=== PATIENT | male | born 1990 | race Caucasian/White ===

== ENCOUNTER 2016-11-27 23:36 | Emergency (ER) | payer SELFPAY ==
[2016-11-28 01:36] LABS: ABSOLUTE BASOPHILS # (AUTO) 0.1 10^3/uL (0.0-0.2); ABSOLUTE EOSINOPHILS # (AUTO) 0.1 10^3/uL (0.0-0.6); ABSOLUTE LYMPHOCYTES (AUTO) 2.8 10^3/uL (0.5-4.7); ABSOLUTE MONOCYTES (AUTO) 0.5 10^3/uL (0.1-1.4); ABSOLUTE NEUT (AUTO) 6.8 10^3/uL (1.7-8.2); BASOPHILS % (AUTO) 1.1 % (0-2); EOSINOPHILS % (AUTO) 1.3 % (0-6); LYMPHOCYTES % (AUTO) 26.8 % (13-45); MEAN CORPUSCULAR HEMOGLOBIN 29.3 pg (27.0-33.4); MEAN CORPUSCULAR HGB CONC 34.2 g/dL (32.0-36.0); MEAN CORPUSCULAR VOLUME 86 fl (80-97); MONOCYTES % (AUTO) 5.2 % (3-13); RED BLOOD COUNT 4.79 10^6/uL (4.35-5.55); RED CELL DISTRIBUTION WIDTH 14.2 % (11.5-14.0); SEGMENTED NEUTROPHILS % (AUTO) 65.6 % (42-78); WHITE BLOOD COUNT 10.3 10^3/uL (4.0-10.5)
--- NOTE | 2016-11-28 01:53 | ER Document Report ---
ED Cardiac - General Time seen by provider: 01:40 Mode of Arrival: Ambulatory Information source: Patient - HPI Patient complains to provider of: Chest pain Was the onset of pain: Sudden Chest pain location: Substernal Quality of pain: Pressure, Throbbing Chest pain radiation location: Left arm, Right arm Severity now: Mild Cardiac risk factors: + Family history Associated symptoms: Diaphoresis, Nausea/vomiting <QI THAYER - Last Filed: 11/28/16 03:00> <MERVIN GONZALEZ - Last Filed: 11/28/16 04:19> - General Chief Complaint: Chest Pain Stated Complaint: CHEST PAIN Notes: Patient is a 26-year-old male presents emergency department with complaints of chest pain that was onset at 20:30 tonight. Patient states that he was laid down and doing no activity with his chest pain started. Patient describes his pain as throbbing and pressure like cellulitis tissue on his test; patient also states that he could not breathe and that it hurt to. Rounded had been short of breath. Patient was also diaphoretic and nauseous. Patient states his pain he lasted for at least 2.5 hours. When EMS was summoned patient's pain stopped with the 2nd nitroglycerin pill. Patient also states that his pain from his chest radiated into his arms and fingers bilaterally; patient described this pain as tingling. Patient states that this pain did not go away until sometime after the chest pain subsided. At time of exam patient is not in any pain but complains of a headache and some nausea. Patient also complains that his arms are sore. 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 Patient states that he does have a family history of some heart disease. Patient's grandmother on his mother's side has had multiple myocardial infarctions with the first one being at age 51. Patient's grandfather on his mother's side also from myocardial infarction at age 50. Patient states that he does have pain like this about 10 years ago, patient was evaluated in [place] where he states that the doctors wanted to complete his studies, patient does not know any more information about these tests or studies and states that he actually moved away and did not have any other care for his previous chest pain. Patient is allergic to morphine. Patient states that he lived here since he was 16, moved away for about 10 years , and has now returned to the area and has been living here for the past 9 months. (QI THAYER) Past Medical History - General Information source: Patient - Social History Smoking Status: Never Smoker Cigarette use (# per day): No Chew tobacco use (# tins/day): No Frequency of alcohol use: Rare Drug Abuse: None Family History: Other - mother's side: gma-MI[employer] (1st @51 y/o), gpa-[place] ( @ 50s y/o) <QI THAYER - Last Filed: 11/28/16 03:00> Review of Systems - Review of Systems Constitutional: See HPI, Diaphoresis EENT: No symptoms reported Cardiovascular: No symptoms reported Respiratory: See HPI, Hurts to breathe Gastrointestinal: See HPI, Nausea Genitourinary: No symptoms reported Male Genitourinary: No symptoms reported Musculoskeletal: No symptoms reported Skin: No symptoms reported Hematologic/Lymphatic: No symptoms reported Neurological/Psychological: No symptoms reported -: Yes All other systems reviewed and negative <QI THAYER - Last Filed: 11/28/16 03:00> Physical Exam - Vital signs Interpretation: Normal - General General appearance: Appears well, Alert In distress: Mild - HEENT Head: Normocephalic, Atraumatic Eyes: Normal Pupils: PERRL Mucous membranes: Normal - Respiratory Respiratory status: No respiratory distress Chest status: Tender - anterior chest wall sternum tenderness to palpation Breath sounds: Normal Chest palpation: Normal - Cardiovascular Rhythm: Regular Heart sounds: Normal auscultation - Abdominal Inspection: Obese Distension: No distension Bowel sounds: Normal Tenderness: Nontender Organomegaly: No organomegaly - Back Back: Normal, Nontender - Extremities General upper extremity: Normal inspection, Normal ROM, Normal strength, Other - patient states his arms feel weak, this could be due to the patient's occupation General lower extremity: Normal inspection, Normal ROM, Normal strength - Neurological Neuro grossly intact: Yes Cognition: Normal Orientation: AAOx4 Merly Coma Scale Eye Opening: Spontaneous [place] Coma Scale Motor: Obeys Commands Speech: Normal - Psychological Associated symptoms: Normal affect, Normal mood - Skin Skin Temperature: Warm Skin Moisture: Dry Skin Color: Pale <QI THAYER - Last Filed: 11/28/16 03:00> Course - Laboratory Result Diagrams: 11/28/16 01:28 11/28/16 01:28 <QI THAYER - Last Filed: 11/28/16 03:00> - Laboratory Result Diagrams: 11/28/16 01:28 11/28/16 01:28 <MERVIN GONZALEZ - Last Filed: 11/28/16 04:19> - Re-evaluation Re-evalutation: 11/28/16 04:14 The patient reported that his pain did come back as quite severe, it was also quite tender to palpate and reproducible. He was given Toradol. When I checked on him sometime after the Toradol, he is almost flat on his back and snoring loudly. When awakened for reexam, he admits the pain is feeling better. Advised him this is most likely a chest wall muscle strain issue and there is no good evidence to suggest that it is cardiac. He does not smoke, his blood pressure is very low, and he is young. His troponin is undetectable despite 3 hours of constant pain. (MERVIN GONZALEZ) - Vital Signs Vital signs: Temp Pulse Resp BP Pulse Ox 60 21 H 105/76 90 L 11/28/16 02:53 11/28/16 04:01 11/28/16 04:01 11/28/16 04:01 (MERVIN GONZALEZ) - Laboratory Laboratory results interpreted by me: 11/28/16 11/28/16 01:28 01:28 RDW 14.2 H BUN 23 H (QI THAYER) (MERVIN GONZALEZ) Discharge <QI THAYER - Last Filed: 11/28/16 03:00> <MERVIN GONZALEZ - Last Filed: 11/28/16 04:19> - Discharge Clinical Impression: Chest wall pain, Obstructive sleep apnea Chest pain Qualifiers: Chest pain type: unspecified Qualified Code(s): R07.9 - Chest pain, unspecified Condition: Stable Disposition: HOME, SELF-CARE Additional Instructions: Chest Wall Pain: Your chest pain has been diagnosed as coming from the chest wall. This is often caused by straining the muscles or joints in the chest during physical activity, direct trauma, coughing, or vigorous vomiting. Persons with arthritis are especially prone to this type of pain, due to inflammation of the cartilage joints near the breast bone. Occasionally, no cause can be found. Rest from strenuous physical activity. This kind of chest pain is usually made worse by movement of the chest. Depending on the symptoms, we may prescribe medicine for pain, muscle relaxation, and antiinflammatory effects. If the pain is new, and seems to be due to muscle strain, cold packs can help. Otherwise, apply gentle warmth to the painful area for 15 minutes every hour or two. You should contact the doctor immediately if things change. Further evaluation is needed if you develop a fever or cough, if the nature of the pain changes, or if you become short of breath. //////////////////////////////////////////////////////////////////////////////// //////////////////////////////////////////////////////////////////////////////// //////////// TAKE TYLENOL AND MOTRIN FOR PAIN. REST. FOLLOW UP WITH A LOCAL MEDICAL DOCTOR FOR FURTHER EVALUATION OF YOUR CHEST PAIN , AND TO BE CHECKED FOR OBSTRUCTIVE SLEEP APNEA. RETURN TO THE EMERGENCY ROOM IF ANY NEW OR WORSENING SYMPTOMS. Scribe Attestation: 11/28/16 04:19 I personally performed the services described in the documentation, reviewed and edited the documentation which was dictated to the scribe in my presence, and it accurately records my words and actions. (MERVIN GONZALEZ) Scribe Documentation - Scribe Written by Asher:: Qi Thayer (11/27/16 01:50) acting as scribe for :: Bryn <QI THAYER - Last Filed: 11/28/16 03:00>
[2016-11-28 01:54] LABS: ALANINE AMINOTRANSFERASE 68 U/L (21-72); ALBUMIN 3.8 g/dL (3.5-5.0); ALKALINE PHOSPHATASE 98 U/L (38-126); ANION GAP 12 (5-19); ASPARTATE AMINO TRANSFERASE 26 U/L (17-59); BILIRUBIN,TOTAL 0.4 mg/dL (0.2-1.3); BLOOD UREA NITROGEN 23 mg/dL (7-20); CALCIUM 9.5 mg/dL (8.4-10.2); CARBON DIOXIDE 25 mmol/L (22-30); CHLORIDE 106 mmol/L (98-107); CREATINE KINASE 92 U/L (55-170); CREATININE RESULT 0.99 mg/dL (0.52-1.25); GLUCOSE 91 mg/dL (75-110); POTASSIUM 4.1 mmol/L (3.6-5.0); SODIUM 142.8 mmol/L (137-145); TOTAL PROTEIN 6.8 g/dL (6.3-8.2)
[2016-11-28 02:07] LABS: CREATINE KINASE MB 0.34 ng/mL (<4.55)
[2016-11-28 02:14] LABS: TROPONIN I < 0.012 ng/mL
[2016-11-28] MEDS ORDERED: KETOROLAC TROMETHAMINE INJ/PF 30 MG/1 ML SDV IV ONE (02:42)
[2016-11-28 04:07] VITALS: BP 105/76
--- NOTE | 2016-11-28 08:02 | EKG REPORT ---
SEVERITY:- ABNORMAL ECG - SINUS RHYTHM ATRIAL PREMATURE COMPLEX WITH ABBERANCY NONSPECIFIC INTRAVENTRICULAR CONDUCTION DELAY : Confirmed by: Gini Chapin 28-Nov-2016 08:01:42
== END 2016-11-28 04:32 | disposition home or self-care (01) ==
LOC: ER 23:36
DX: R07.9 Chest pain, unspecified (principal); G47.33 Obstructive sleep apnea (adult) (pediatric); R06.02 Shortness of breath; R51 Headache; R11.0 Nausea; R61 Generalized hyperhidrosis
CPT/HCPCS: 93005; 99285; 96374; 36415; 82553; 82550; 85025; 80053; 84484; 71010; 93010; J1885

== ENCOUNTER 2018-09-12 18:44 | Emergency (ER) | payer OTHER ==
[2018-09-12 18:53] VITALS: BP 143/97
--- NOTE | 2018-09-12 20:34 | RADIOLOGY REPORT (SQ) ---
EXAM DESCRIPTION: FOOT RIGHT COMPLETE COMPLETED DATE/TIME: 09/12/2018 8:13 pm REASON FOR STUDY: fall through floor COMPARISON: None. NUMBER OF VIEWS: Three views. TECHNIQUE: AP, lateral and oblique radiographic images acquired of the right foot. LIMITATIONS: None. FINDINGS: MINERALIZATION: Normal. BONES: No acute fracture or dislocation. No worrisome bone lesions. JOINTS: No effusions. SOFT TISSUES: No soft tissue swelling. No foreign body. OTHER: No other significant finding. IMPRESSION: NEGATIVE STUDY OF THE RIGHT FOOT. NO RADIOGRAPHIC EVIDENCE OF ACUTE INJURY. TECHNICAL DOCUMENTATION: JOB ID: [id number] [place]- All Rights Reserved Reading location - IP/workstation name: [email or web address]
--- NOTE | 2018-09-12 21:29 | ER Document Report ---
ED Extremity Problem, Lower - General Chief Complaint: Foot Injury Stated Complaint: FALL,ANKLE INJURY Time Seen by Provider: 09/12/18 19:35 Mode of Arrival: Ambulatory Information source: Patient Notes: Patient is a 28-year-old male comes emergency room complaining of right foot pain. 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 He believes it was twisted inward. He is complaining of pain along the right lateral side of the foot. TRAVEL OUTSIDE OF THE [place] IN LAST 30 DAYS: No - HPI Patient complains to provider of: Pain, Swelling Location: Foot, 5th Toe Occurred: Other - 2 days ago Where: Public place, Work Onset/Duration: Sudden, Constant, Worse Quality of pain: Throbbing Severity: Moderate Pain Level: 3 Context: Wearing shoes Recent injury: Yes Associated symptoms: Painful ambulation Exacerbated by: Movement, Walking Relieved by: Elevation, Rest - Related Data Allergies/Adverse Reactions: morphine Allergy (Verified 09/12/18 18:46) Past Medical History - General Information source: Patient - Social History Smoking Status: Never Smoker Cigarette use (# per day): No Chew tobacco use (# tins/day): No Smoking Education Provided: No Frequency of alcohol use: None Drug Abuse: None Lives with: Family Family History: Reviewed & Not Pertinent, Other - mother's side: gma-MIx3 (1st @ 51 y/o), gpa-[place] ( @50s y/o) Patient has suicidal ideation: No Patient has homicidal ideation: No Renal/ Medical History: Denies: Hx Peritoneal Dialysis Review of Systems - Review of Systems Constitutional: No symptoms reported EENT: No symptoms reported Cardiovascular: No symptoms reported Respiratory: No symptoms reported Gastrointestinal: No symptoms reported Genitourinary: No symptoms reported Male Genitourinary: No symptoms reported Musculoskeletal: No symptoms reported, Joint pain, Joint swelling, Ankle swelling Skin: No symptoms reported Hematologic/Lymphatic: No symptoms reported Neurological/Psychological: No symptoms reported -: Yes All other systems reviewed and negative Physical Exam - Vital signs Vitals: Temp Pulse Resp BP Pulse Ox 98.7 F 77 24 H 143/97 H 98 09/12/18 18:52 09/12/18 18:52 09/12/18 18:52 09/12/18 18:52 09/12/18 18:52 Interpretation: Hypertensive - Notes Notes: Patient is well-nourished well-developed 28-year-old male obese in no apparent distress on physical exam. Although he does appear uncomfortable. - General General appearance: Alert In distress: None - HEENT Head: Normocephalic, Atraumatic Eyes: Normal - Respiratory Respiratory status: No respiratory distress Chest status: Nontender Breath sounds: Normal. No: Rales, Rhonchi, Stridor, Wheezing Chest palpation: Normal - Cardiovascular Rhythm: Regular Heart sounds: Normal auscultation Murmur: No - Extremities General upper extremity: Normal inspection, Nontender, Normal ROM, Normal strength General lower extremity: Tender, Edema, Normal strength, Normal temperature. No : Normal ROM, Normal weight bearing, Levi's sign Ankle: Tender, Edema, Limited ROM. No: Abrasion, Deformity, Ecchymosis, Instability, Laceration, Positive Munoz's test, Unable to bear weight Foot: Tender, Edema, Metatarsal compress. pain, No evidence of FB, Tender 5th metatarsal, Other - Examination of patient's foot shows that he is only tender along the lateral aspect of the foot along the fifth metatarsal area. He has good movement of the toes but the pain is directly center of the metatarsal. He does have some swelling in the ankle but is nonpainful to palpation. Has full range of motion of the ankle without any discomfort or pain it is only in the area of the fifth metatarsal on the lateral side that he has any pain but it is marked amount.. No: Nail injury, Navicular tenderness, Puncture wound, Unable to bear weight - Neurological Neuro grossly intact: Yes Cognition: Normal Orientation: AAOx4 Merly Coma Scale Eye Opening: Spontaneous [place] Coma Scale Verbal: Oriented Merly Coma Scale Motor: Obeys Commands Merly Coma Scale Total: 15 Speech: Normal Course - Re-evaluation Re-evalutation: 09/12/18 21:29 I discussed with patient that the most obvious way to fix this since there was no fracture on the x-ray would be to put him on a splint nonweightbearing for 3 days then after 3 days attempt to bear weight if still painful he would need to see orthopedist. 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 He states he will be off work for tomorrow and possibly Friday and then he has to go back to work. He is elected not to have the splint until have it Ovi wrap. I have informed him not to sleep with an Ovi wrap on. We have also given him crutches. I have also informed him that ibuprofen is his best anti-inflammatory for treating this pain and that he can take 4 [id number] Advil is the same as if I write him a prescription. He is agreed to take that [id number]. I also told him to take it only 3 times a day with food. - Vital Signs Vital signs: Temp Pulse Resp BP Pulse Ox 98.7 F 77 24 H 143/97 H 98 09/12/18 18:52 09/12/18 18:52 09/12/18 18:52 09/12/18 18:52 09/12/18 18:52 Discharge - Discharge Clinical Impression: Sprain Contusion of right foot Qualifiers: Encounter type: initial encounter Qualified Code(s): S90.31XA - Contusion of right foot, initial encounter Condition: Stable Disposition: HOME, SELF-CARE Instructions: Contusion ([facility]), Sprained Ankle ([facility]) Additional Instructions: As we discussed the best way to treat this is to give it rest. Since she cannot do that be nonweightbearing for as long as possible 2 or 3 days ice to the foot 3 times a day. Best way to do this is to get a bucket and make/water I see out of it. Stick your foot in for 3 minutes. After 3 minutes pull it out and do not go a second longer. Take ibuprofen 800 mg 3 times a day with food. This is for Advil tablets each time. Wear the Ovi wrap when you are up and walking do not use it while you are still sleeping or sitting for long periods of time it will decrease her circulation and cause swelling to occur. I am giving you the name of the orthopedist operator specialist communications tonight if for any reason this is not healing over the pain is not going away after 3-4 days you may want to contact the orthopedist to see if he can accommodate you. You may always return to ER for recheck as well. Forms: Elevated Blood Pressure Referrals: TYLER SILVA MD [ACTIVE STAFF] - Follow up as needed
== END 2018-09-12 21:40 | disposition home or self-care (01) ==
LOC: ER 18:44
DX: S93.601A Unspecified sprain of right foot, initial encounter (principal); W17.89XA Other fall from one level to another, initial encounter; Y93.H3 Activity, building and construction; Y99.0 Civilian activity done for income or pay; Z88.6 Allergy status to analgesic agent
CPT/HCPCS: 99283